=== PATIENT | female | born 1990 | race Caucasian/White ===

== ENCOUNTER 2025-04-30 08:07 | Outpatient (CLI) | payer BC, SELFPAY ==
--- NOTE | ~2025-04-30 | US_ITS ---
EXAM/PROCEDURE: US OB <= 14 weeks fetus HISTORY: N91.2 - Amenorrhea, unspecified COMPARISON: None available. TECHNIQUE: Directed evaluation for viability and dating FINDINGS: Gestational sac with intrauterine gestation and crown-rump length of approximately 2.26 cm corresponding to estimated gestational age of 9 weeks 0 days by ultrasound seen. No heart tones identified. EGA by dates and ultrasound are 11 weeks 1 day and 9 weeks 0 days EDC by dates and ultrasound November 18 and December 03, 2025 The uterus measures 10.3 x 8.3 x 4.4 cm Neither the right nor the left ovary is seen. No free fluid or gross acute pelvic abnormality identified. IMPRESSION: pole identified with sonographic EGA of 9 weeks 0 days but no heart tones demonstrated. Correlate with follow-up quantitative hCG level and consider repeat scan in 24 hours to confirm absence of viability. Reviewed, dictated and finalized at location A. [facility] [employer] [employer] IMPRESSION: pole identified with sonographic EGA of 9 weeks 0 days but no heart tones demonstrated. Correlate with follow-up quantitative hCG leve l and consider repeat scan in 24 hours to confirm absence of viability.
== END 2025-04-30 08:08 | disposition home or self-care (01) ==
PROVIDERS: PCP Student in an Organized Health Care Education/Training Program; Visit Provider Student in an Organized Health Care Education/Training Program
DX: N91.2 Amenorrhea, unspecified (principal)
CPT/HCPCS: 76801